=== PATIENT | female | born 1990 | race Caucasian/White ===

== ENCOUNTER 2017-05-09 10:49 | Emergency (ER) | payer OTHER ==
[2017-05-09 11:02] VITALS: BP 135/78; PULSE 65; TEMP 98.1; BMI 31.8
--- NOTE | 2017-05-09 11:10 | PDOC ---
History of Present Illness - General Chief Complaint: Back Pain Stated Complaint: BACK PAIN/NAUSEAU Time Seen by Provider: 05/09/17 11:09 History Source: Patient - History of Present Illness Initial Comments: 05/09/17 11:44 Patient is a 26-year-old female with no past medical history who presents to the emergency department today complaining of low back pain, nausea and dizziness. Patient states her symptoms began approximately 4 days ago. Patient thinks she may be . States she had unprotected sex. She has one partner. Pt. states her last period was the beginning of march. She had slight spotting in April, but not a full cycle. She states that when she had her first child she had similar symptoms. She took a home test approximately 4 days ago which was negative at that time. She states that her first the urine test was negative and she had to be diagnosed with a blood test. Denies fevers, chills, shortness of breath, cough, sore throat, vomiting, diarrhea, constipation, hematuria, dysuria, frequency, and vaginal bleeding. Past History - Travel Traveled outside of the country in the last 30 days: No Close contact w/someone who was outside of country & ill: No - Past Medical History Allergies/Adverse Reactions: Allergies Allergy/AdvReac Type Severity Reaction Status Date / Time No Known Allergies Allergy Verified 05/09/17 10:58 Home Medications: Ambulatory Orders Ibuprofen 800 mg PO TID #30 tablet 05/09/17 Ondansetron [Zofran Odt -] 4 mg SL TID #10 od.tablet 05/09/17 Asthma: Yes Cancer: No Cardiac Disorders: No CVA: No COPD: No Diabetes: No HTN: No Seizures: No Thyroid Disease: No - Reproductive History (#): 5 Para: 3 Cervical CA: No Dysfunctional Uterine Bleeding: No Ectopic : No Endometrial CA: No Polycystic Ovaries: No Tubal Ligation: No - Suicide/Smoking/Psychosocial Hx Smoking History: Never smoked Have you smoked in the past 12 months: No Information on smoking cessation initiated: No Hx Alcohol Use: No Drug/Substance Use Hx: No Substance Use Type: None Hx Substance Use Treatment: No Review of Systems - Review of Systems Able to Perform ROS?: Yes Is the patient limited Taiwanese proficient: No *Physical Exam - Vital Signs Last Vital Signs Temp Pulse Resp BP Pulse Ox 98.1 F 65 18 135/78 100 05/09/17 10:59 05/09/17 10:59 05/09/17 10:59 05/09/17 10:59 05/09/17 10:59 Medical Decision Making - Medical Decision Making 05/09/17 12:47 Pt. is not at this time. Recommending CT scan to r/o kidney stones given blood in urine and nausea. Pt. is refusing CT scan because she does not want the radiation. Explained the need for CT scan. Pt. still refusing. She states she can follow up with her primary care doctor. Pt. is well appearing. Will d/c home at this time with zofran and ibuprofen *DC/Admit/Observation/Transfer Diagnosis at time of Disposition: Nausea Back pain Qualifiers: Back pain location: low back pain Chronicity: acute Back pain laterality: midline Sciatica presence: without sciatica Qualified Code(s): M54.5 - Low back pain - Discharge Dispostion Disposition: HOME Condition at time of disposition: Good Admit: No - Prescriptions Prescriptions: Ibuprofen 800 mg PO TID #30 tablet Ondansetron [Zofran Odt -] 4 mg SL TID #10 od.tablet - Referrals Referrals: Eduardo Ronquillo MD [Staff Physician] - - Patient Instructions Printed Discharge Instructions: DI for Nausea -- Adult Additional Instructions: Sandhu anlisis de tamra hoy fue negativo para el embarazo. [place] Zofran segn sea necesario para las nuseas. Puede [place] ibuprofeno segn sea necesario para el dolor de espalda baja. Por favor ryanne un seguimiento con sandhu mdico de atencin primaria esta semana. Regrese al servicio de urgencias si tiene un empeoramiento del dolor, tamra en la orina, dolor al orinar, fiebre, escalofros o cualquier cambio en brittni s ntomas. Your blood work today was negative for . Take Zofran as needed for nausea. You may take the ibuprofen as needed for low back pain. Please follow- up with your primary care doctor this week. Please return to the emergency department if you have worsening pain, blood in your urine, pain when you pee, fevers, chills or any changes in your symptoms. - Post Discharge Activity Forms/Work/School Notes: Back to Work
[2017-05-09] MEDS ORDERED: ONDANSETRON *ODT* 4 MG TABLET SL ONE (12:06)
[2017-05-09] MEDS ORDERED: ONDANSETRON *ODT* 4 MG TABLET ONE (12:16)
[2017-05-09 12:18] LABS: URINE APPEARANCE CLEAR; URINE BILIRUBIN NEGATIVE (NEGATIVE); URINE BLOOD 2+ (NEGATIVE); URINE COLOR LTYELLOW; URINE GLUCOSE (UA) NEGATIVE (NEGATIVE); URINE KETONE NEGATIVE (NEGATIVE); URINE LEUK ESTERASE NEGATIVE (NEGATIVE); URINE NITRITE NEGATIVE (NEGATIVE); URINE PROTEIN NEGATIVE (NEGATIVE); URINE UROBILINOGEN NEGATIVE mg/dL (0.2-1.0)
[2017-05-09 12:35] LABS: HCG,QUALITATIVE URINE NEGATIVE
== END 2017-05-09 13:01 | disposition home or self-care (01) ==
LOC: JERFT 10:49
DX: M54.5 Low back pain (principal)
CPT/HCPCS: 36415; 81003; 81015; 84702; 84703; 87086; 87491; 87591; 99281-25

== ENCOUNTER 2020-05-30 08:05 | Inpatient (IN) | payer OTHER ==
[2020-05-30] MEDS ORDERED: ELECTROLYTE-148 SOLN 1,000 ML IV SCH (09:30)
[2020-05-30] MEDS ORDERED: WITCH HAZEL 50% (TUCKS) 40 PAD/JAR PAD TP PRN (09:31)
[2020-05-30] MEDS ORDERED: BENZOCAINE 28 GM HEMORRHOIDAL OINTMENT TP PRN (09:31)
[2020-05-30] MEDS ORDERED: METHYLERGONOVINE MALEATE 0.2 MG/1 ML AMP IM PRN (09:31)
[2020-05-30 09:42] VITALS: BMI 40.0
[2020-05-30] MEDS: PRENATAL VITAMINS W/ FOLIC ACID TABLET (FP) PO SCH (09:56)
[2020-05-30] MEDS ORDERED: morphine SULFATE/PF 0.5 MG/ML (2cc Syringe - QUVA) ONE (10:12)
[2020-05-30] MEDS ORDERED: ePHEDrine SULFATE 50 MG/1 ML AMPULE ONE (10:13)
[2020-05-30] MEDS ORDERED: ONDANSETRON 4 MG/2 ML VIAL IVPUSH PRN (10:23)
[2020-05-30] MEDS ORDERED: morphine SULFATE/PF 0.5 MG/ML (2cc Syringe - QUVA) SPIN ONE (10:23)
[2020-05-30 11:44] LABS: CORD BASE EXCESS -2.8 mmol/L (0-2); CORD HCO3 23.8 mmHg (20-29); CORD PCO2 48.1 mmHg (30-78); CORD pH 7.312 (7.14-7.44)
[2020-05-30 13:02] LABS: HIV INTERPRETATION NEGATIVE (NEGATIVE)
[2020-05-30] MEDS: FERROUS SO4 325 MG TABLET (FP) PO SCH (17:21)
[2020-05-30] MEDS: IBUPROFEN 800 MG/8 ML IJ IVPB PRN (21:53)
[2020-05-30] MEDS ORDERED: SENNOSIDES/DOCUSATE COMBO (SENNA PLUS) TABLET (UD) PO PRN (22:00)
[2020-05-31 09:30] LABS: BASO % 0.6 % (0-2.0); EOS % 1.9 % (0-4.5); HEMATOCRIT 32.4 % (32.4-45.2); LYMPH % 15.6 % (8-40); MCH 30.1 pg (25.7-33.7); MCHC 34.1 g/dl (32.0-36.0); MEAN CELL VOLUME 88.4 fl (80-96); MEAN PLT VOLUME 8.4 fl (7.5-11.1); MONO % 9.8 % (3.8-10.2); NEUT % 72.1 % (42.8-82.8); PLATELET COUNT 257 K/MM3 (134-434); RBC 3.66 M/mm3 (3.60-5.2); RDW 15.5 % (11.6-15.6); WHITE BLOOD COUNT 9.7 K/mm3 (4.0-10.0)
[2020-05-31] MEDS ORDERED: oxyCODONE HCL 5 MG TABLET PO PRN (09:31)
[2020-05-31] MEDS ORDERED: BISACODYL 10 MG SUPP.RECT RC PRN (09:31)
[2020-05-31] MEDS: PRENATAL VITAMINS W/ FOLIC ACID TABLET (FP) PO SCH (09:49)
[2020-05-31] MEDS: FERROUS SO4 325 MG TABLET (FP) PO SCH ×2 (09:49→17:33)
[2020-05-31] MEDS: SIMETHICONE 80 MG TAB.CHEW (FP) PO PRN (09:52)
[2020-05-31] MEDS: IBUPROFEN 600 MG TABLET (FP) PO PRN (09:52)
[2020-05-31] MEDS: oxyCODONE HCL 5 MG TABLET PO PRN (14:58)
[2020-05-31] MEDS: IBUPROFEN 800 MG/8 ML IJ IVPB PRN (16:24)
[2020-06-01] MEDS: oxyCODONE HCL 5 MG TABLET PO PRN ×3 (02:02→23:56)
[2020-06-01] MEDS: IBUPROFEN 600 MG TABLET (FP) PO PRN ×5 (02:02→23:55)
[2020-06-01] MEDS: SIMETHICONE 80 MG TAB.CHEW (FP) PO PRN ×4 (02:03→23:56)
[2020-06-01] MEDS: PRENATAL VITAMINS W/ FOLIC ACID TABLET (FP) PO SCH (09:15)
[2020-06-01] MEDS: FERROUS SO4 325 MG TABLET (FP) PO SCH ×2 (09:15→17:05)
[2020-06-02 07:55] LABS: BASO % 0.7 % (0-2.0); EOS % 4.6 % (0-4.5); HEMATOCRIT 33.6 % (32.4-45.2); HEMOGLOBIN 11.3 GM/dL (10.7-15.3); LYMPH % 24.2 % (8-40); MCH 29.8 pg (25.7-33.7); MCHC 33.6 g/dl (32.0-36.0); MEAN CELL VOLUME 88.8 fl (80-96); MEAN PLT VOLUME 7.9 fl (7.5-11.1); MONO % 8.3 % (3.8-10.2); NEUT % 62.2 % (42.8-82.8); PLATELET COUNT 316 K/MM3 (134-434); RBC 3.78 M/mm3 (3.60-5.2); RDW 15.3 % (11.6-15.6); WHITE BLOOD COUNT 8.7 K/mm3 (4.0-10.0)
[2020-06-02] MEDS: IBUPROFEN 600 MG TABLET (FP) PO PRN ×2 (10:21→18:18)
[2020-06-02] MEDS: PRENATAL VITAMINS W/ FOLIC ACID TABLET (FP) PO SCH (10:21)
[2020-06-02] MEDS: FERROUS SO4 325 MG TABLET (FP) PO SCH ×2 (10:25→18:19)
[2020-06-02] MEDS: oxyCODONE HCL 5 MG TABLET PO PRN (19:52)
[2020-06-02] MEDS: SIMETHICONE 80 MG TAB.CHEW (FP) PO PRN (19:54)
[2020-06-03] MEDS: IBUPROFEN 600 MG TABLET (FP) PO PRN (06:45)
[2020-06-03] MEDS: PRENATAL VITAMINS W/ FOLIC ACID TABLET (FP) PO SCH (09:27)
[2020-06-03] MEDS: FERROUS SO4 325 MG TABLET (FP) PO SCH (09:28)
[2020-06-03 10:56] VITALS: BP 119/71; PULSE 97; TEMP 97.8
== END 2020-06-03 16:10 | disposition home or self-care (01) | DRG 540 ==
LOC: JLDR 08:05 → J3W 12:46
PROVIDERS: ADMIT Obstetrics & Gynecology; ATTEND Obstetrics & Gynecology
PROC: 10D00Z1 Extraction of Products of Conception, Low, Open Approach (ICD-10-PCS; principal; 2020-05-30)
DX: O99.214 Obesity complicating childbirth (principal); E66.01 Morbid (severe) obesity due to excess calories; O36.63X0 Maternal care for excessive fetal growth, third trimester, not applicable or unspecified; O34.13 Maternal care for benign tumor of corpus uteri, third trimester; D25.9 Leiomyoma of uterus, unspecified; Z37.0 Single live birth; Z3A.39 39 weeks gestation of pregnancy; Z88.6 Allergy status to analgesic agent
CPT/HCPCS: 36415; 36600; 82803; 85025; 87340; 87389; 88307-TC

== ENCOUNTER 2024-08-16 08:44 | Emergency (ER) | payer OTHER ==
[2024-08-16 09:01] VITALS: BP 142/97; PULSE 78; RESP 16; TEMP 99.1; BMI 23.8
[2024-08-16] MEDS ORDERED: DEXAMETHASONE SOD PHOSPHATE 10 MG/1 ML VIAL ONE (09:03)
[2024-08-16] MEDS: DEXAMETHASONE SOD PHOSPHATE 10 MG/1 ML VIAL PO ONE (09:07)
== END 2024-08-16 09:58 | disposition home or self-care (01) ==
LOC: JER 08:44
DX: L30.9 Dermatitis, unspecified (principal)
CPT/HCPCS: 99283-25; J1100